=== PATIENT | male | born 1940 | race Caucasian/White ===

== ENCOUNTER 2017-12-14 16:37 | Emergency (ER) | payer MEDICARE, BC ==
[~2017-12-14] VITALS: Ht 162.6 cm; Wt 72.6 kg
[~2017-12-14 16:37] MED LIST: ASPI81CH PO; Accupril40 MG PO; BUPR150ER PO; BUPR150T2; BUPR150T2 PO; CALCIUM 600 +1 EAC2 PO; CARV25; CARV25 PO; CARV3.125 PO; CARV6.25 PO; CELE200 PO; CHOL10002; CLOP75 PO; CODACE30 PO; CVS OMEGA-3 KR1 EACH PO; DIAZ5 PO; DOXA2; DOXA4 PO; DOXAZOSIN 8 MG; DOXE25 PO; DOXE50 PO; DOXEPIN HCL 100 MG; ERGO50000 PO; FEOSOL; FINA5 PO; FLUO10 PO; FLUO20; FLUO20 PO; HYDACE10B PO; HYDACE5 PO; HYDACE5325 PO; HYDHCL25 PO; Hydrochloroth12.5 MG PO; IBUP600 PO; IRON; IRON18 MG PO; Kristalose20 GM PO; LORA10 PO; MECL25 PO; METCAR750 PO; MIRT15ST MM; MONT10T PO; MULVITB&C; MULVITB&C PO; NAPR500 PO; OMEPRAZOLE MAGN20 MG PO; PILO5; PILO5 PO; Percocet 10-321 EACH PO; Percocet 5-3251 EACH PO; QUIN10 PO; QUINAPRIL 40 MG; RXHYD5325 PO; SIMV10 PO; SULTRIDS PO; Silvadene20 GM TOP; Super B Comple150 MG PO; Super B-50 Com1 EACH PO; TAMS.4ER PO; TRAM50; TRAM50 PO; TURMERIC500 M1 PO; VITAMIN B COMPLEX; ZOCOR 20MG; Zantac150 MG PO; Zocor20 MG PO
[2017-12-14] MEDS ORDERED: Norco 5-325 Ta1 EACH PO (21:08)
[2017-12-14] MEDS ORDERED: Keflex500 MG PO (21:08)
== END 2017-12-14 21:36 | disposition home or self-care (01) ==
LOC: ER 16:37
DX: S62.611A Displaced fracture of proximal phalanx of left index finger, initial encounter for closed fracture (principal); S61.412A Laceration without foreign body of left hand, initial encounter; W22.8XXA Striking against or struck by other objects, initial encounter; Z91.018 Allergy to other foods; Z88.8 Allergy status to other drugs, medicaments and biological substances; Z79.899 Other long term (current) drug therapy; Z79.82 Long term (current) use of aspirin; I10 Essential (primary) hypertension; E78.00 Pure hypercholesterolemia, unspecified; F32.9 Major depressive disorder, single episode, unspecified
CPT/HCPCS: 73120; J0690; J3010

== ENCOUNTER → 2018-03-13 | Outpatient (CLI) | payer MEDICARE, BC ==
[~2018-03-13] MED LIST changes: +Keflex500 MG PO; +Norco 5-325 Ta1 EACH PO
[2018-03-15 15:26] LABS: Stool Occult Bld Immuno 1 Negative (NEGATIVE); Stool Occult Bld Immuno 2 Negative (NEGATIVE)
== END | disposition home or self-care (01) ==
LOC: LAB SHORT 14:51 → LAB 14:51 → LAB FUT 03-09 15:35
PROVIDERS: Internal Medicine
DX: D53.8 Other specified nutritional anemias (principal)
CPT/HCPCS: 82274

== ENCOUNTER 2019-01-26 10:54 | Day surgery (SDC) | payer MEDICARE, BC ==
[~2019-01-26] VITALS: Ht 162.6 cm; Wt 67.3 kg
[~2019-01-26 10:54] MED LIST changes: +LOW DOSE ASPIRI81 MG PO; +OMEP20ER PO; +QUETIAPINE FUMA50 MG PO; +ZOLP5 PO
== END 2019-01-26 13:15 | disposition home or self-care (01) ==
LOC: ORSCSDS 10:54
PROVIDERS: Surgery
PROC: 0DJD8ZZ Inspection of Lower Intestinal Tract, Via Natural or Artificial Opening Endoscopic (ICD-10-PCS; principal; 2019-01-26 12:00)
DX: Z12.11 Encounter for screening for malignant neoplasm of colon (principal); Z86.010 Personal history of colon polyps; G47.33 Obstructive sleep apnea (adult) (pediatric); I35.0 Nonrheumatic aortic (valve) stenosis; Z79.899 Other long term (current) drug therapy
CPT/HCPCS: J2250; J2704; J7120

== ENCOUNTER 2020-09-23 19:19 | Emergency (ER) | payer MEDICARE, BC ==
[~2020-09-23] VITALS: Ht 165.1 cm; Wt 72.6 kg
== END 2020-09-23 23:23 | disposition home or self-care (01) ==
LOC: ER 19:19
DX: R04.0 Epistaxis (principal); I10 Essential (primary) hypertension; E78.00 Pure hypercholesterolemia, unspecified; Z88.1 Allergy status to other antibiotic agents; Z79.82 Long term (current) use of aspirin; Z87.891 Personal history of nicotine dependence; Z79.899 Other long term (current) drug therapy
CPT/HCPCS: 30901; 99283-25; A9270

== ENCOUNTER 2023-03-28 15:54 | Emergency (ER) | payer MEDICARE, BC ==
[~2023-03-28] VITALS: Ht 162.6 cm; Wt 81.2 kg
[2023-03-28 17:29] LABS: BASOPHILS ABSOLUTE AUTO 0.09 K/mm3 (0.00-0.23); BASOPHILS PERCENT AUTO 1 % (0-2); EOSINOPHILS PERCENT AUTO 1 % (0-6); Hematocrit 44.7 % (37.0-53.0); Hemoglobin 15.4 g/dL (13.5-17.5); IMMATURE GRAN ABSOLUTE AUTO 0.08 K/mm3 (0.00-0.10); IMMATURE GRAN PERCENT AUTO 1 % (0-1); LYMPHOCYTES ABSOLUTE AUTO 2.76 K/mm3 (0.84-5.20); LYMPHOCYTES PERCENT AUTO 18 % (21-46); MONOCYTES ABSOLUTE AUTO 1.48 K/mm3 (0.16-1.47); MONOCYTES PERCENT AUTO 10 % (4-13); Mean Corpuscular HGB 31.1 pg (26.0-34.0); Mean Corpuscular HGB Conc 34.5 g/dL (31.5-36.5); Mean Corpuscular Volume 90 fL (80-100); Mean Platelet Volume 10.9 fL (9.1-12.4); NEUTROPHILS ABSOLUTE AUTO 10.82 K/mm3 (1.96-9.15); NEUTROPHILS PERCENT AUTO 71 % (41-73); Platelet Count 250 K/mm3 (150-400); RDW Coefficient Variation 12.3 % (11.7-14.2); RDW Standard Deviation 40.7 fL (35.1-46.3); Red Blood Cell Count 4.95 M/mm3 (4.30-5.90); White Blood Cell Count 15.33 K/mm3 (4.00-11.30)
[2023-03-28 17:46] LABS: Albumin, Blood 4.5 g/dL (3.4-5.0); Albumin/Globulin Ratio 1.1 (0.8-1.8); Bilirubin, Total 0.7 mg/dL (0.1-1.0); Calcium, Blood 9.9 mg/dL (8.5-10.1); Creatinine, Blood 2.33 mg/dL (0.60-1.20); Globulin, Blood 4.1 g/dL (2.2-4.0); Potassium, Blood 4.1 mmol/L (3.5-5.5); Total Protein, Blood 8.6 g/dL (6.4-8.2)
[2023-03-28 21:30] VITALS: BP 132/100
[2023-03-28 22:52] LABS: Source, Urine Clean Catch
[2023-03-28 23:06] LABS: Bilirubin, Urine Neg (Neg); Blood, Urine 2+ (Neg); Glucose Qualitative, Urine Neg (Neg); Ketones, Urine Neg (Neg); Leukocyte Esterase, Urine 3+ (Neg); Nitrite, Urine Neg (Neg); Protein, Urine 2+ (Neg); Specific Gravity, Urine 1.015 (1.003-1.022); Urobilinogen, Urine NORM (Normal)
[2023-03-28 23:19] LABS: Appearance, Urine Hazy (Clear); Color, Urine Yellow (P-Yellow)
[2023-03-28 23:21] LABS: Amorphous Light (0-Heavy); Bacteria Mod /hpf; Squamous Epithelial Cells Few /hpf (Few); White Blood Cells, Urine 25-50 /hpf (0-5)
[2023-03-28] MEDS ORDERED: CEFD300 PO (23:29)
== END 2023-03-29 00:34 | disposition home or self-care (01) ==
LOC: ER 15:54
PROVIDERS: Emergency Medicine; Physician Assistant
DX: N39.0 Urinary tract infection, site not specified (principal); I12.9 Hypertensive chronic kidney disease with stage 1 through stage 4 chronic kidney disease, or unspecified chronic kidney disease; N18.9 Chronic kidney disease, unspecified; G47.00 Insomnia, unspecified; E78.5 Hyperlipidemia, unspecified; Z87.891 Personal history of nicotine dependence; Z88.1 Allergy status to other antibiotic agents; Z91.018 Allergy to other foods; Z91.048 Other nonmedicinal substance allergy status; Z79.899 Other long term (current) drug therapy; Z79.82 Long term (current) use of aspirin
CPT/HCPCS: 70450; 80053; 81001; 82140; 83690; 85025; 87086; 93005; 93010; 96360; 99284-25; A9270; J7030

== ENCOUNTER 2023-05-07 08:45 | Emergency (ER) | payer MEDICARE, BC ==
[~2023-05-07] VITALS: Ht 177.8 cm; Wt 81.7 kg
[~2023-05-07 08:45] MED LIST changes: +CEFD300 PO
[2023-05-07 10:45] VITALS: BP 152/92
== END 2023-05-07 11:45 | disposition home or self-care (01) ==
LOC: ER 08:45
DX: M25.562 Pain in left knee (principal); G89.29 Other chronic pain; Z88.1 Allergy status to other antibiotic agents; Z88.8 Allergy status to other drugs, medicaments and biological substances; Z79.899 Other long term (current) drug therapy; Z79.82 Long term (current) use of aspirin; Z91.018 Allergy to other foods; I10 Essential (primary) hypertension; E78.00 Pure hypercholesterolemia, unspecified; Z87.891 Personal history of nicotine dependence
CPT/HCPCS: 73562-LT; 96374; 99283-25; A9270; J2270

== ENCOUNTER → 2023-07-15 | Outpatient (CLI) | payer MEDICARE, BC ==
[2023-07-15 17:02] LABS: Source, Urine Voided
[2023-07-15 18:41] LABS: Amorphous Light (0-Heavy); Bacteria Mod /hpf; Hyaline Casts 0-2 /lpf (0-2)
[2023-07-15 18:42] LABS: Red Blood Cells, Urine 0-2 /hpf (0-2); Squamous Epithelial Cells Not Seen /hpf (Few)
== END | disposition home or self-care (01) ==
LOC: LAB SHORT 16:59 → LAB 16:59
PROVIDERS: Physician Assistant
DX: N39.0 Urinary tract infection, site not specified (principal)
CPT/HCPCS: 81015; 87077; 87086; 87186

== ENCOUNTER → 2025-01-24 | Outpatient (CLI) | payer MEDICARE, BC ==
[2025-01-24 15:56] LABS: Source, Urine Clean Catch
[2025-01-24 18:55] LABS: Bilirubin, Urine Neg (Neg); Color, Urine Yellow (P-Yellow); Glucose Qualitative, Urine Neg (Neg); Ketones, Urine Neg (Neg); Leukocyte Esterase, Urine 3+ (Neg); Protein, Urine 2+ (Neg); Specific Gravity, Urine 1.010 (1.003-1.022); Urobilinogen, Urine NORM (Normal)
[2025-01-24 19:14] LABS: Red Blood Cells, Urine 0-2 /hpf (0-2); White Blood Cells, Urine 50-100 /hpf (0-5)
== END ==
LOC: LAB 15:55 → LAB SHORT 15:55
PROVIDERS: Internal Medicine
DX: N39.0 Urinary tract infection, site not specified (principal)
CPT/HCPCS: 81001; 87086; 87147

== ENCOUNTER 2025-05-28 14:56 | Emergency (ER) | payer MEDICARE, BC ==
[~2025-05-28] VITALS: Ht 162.6 cm; Wt 81.7 kg
[2025-05-28 15:28] VITALS: BP 169/94
[2025-05-28] MEDS ORDERED: HYDROmorphone HCl/Pf 1MG SYR IM ONE (15:35)
[2025-05-28] MEDS ORDERED: OXYC5 PO (18:19)
== END 2025-05-28 18:25 | disposition home or self-care (01) ==
LOC: ER 14:56
DX: M54.2 Cervicalgia (principal); G89.29 Other chronic pain; I10 Essential (primary) hypertension; E78.00 Pure hypercholesterolemia, unspecified; Z88.1 Allergy status to other antibiotic agents; Z88.8 Allergy status to other drugs, medicaments and biological substances; Z79.82 Long term (current) use of aspirin; Z79.899 Other long term (current) drug therapy; Z87.891 Personal history of nicotine dependence
CPT/HCPCS: 96372; 99283-25; J1171